=== PATIENT | female | born 1980 | race Caucasian/White ===

== ENCOUNTER 2017-09-21 05:52 | Day surgery (SDC) | payer BC ==
[~2017-09-21] VITALS: Ht 175.3 cm; Wt 68.0 kg
[~2017-09-21 05:52] MED LIST: BENTYL20 MG PO; HYDROCODON-ACE1 EAC7 PO; IBUPROFEN400 MG PO; MOTRIN800 MG PO; MULTI-BETIC TA1 EACH PO; TYLENOL EXTRA500 MG PO; URSODIOL300 MG PO; URSODIOL500 MG PO; ZOFRAN4 MG PO
[2017-09-21 06:26] VITALS: BP 117/65
[2017-09-21] MEDS ORDERED: ULTRAM50 MG PO (08:31)
[2017-09-21 10:01] VITALS: BP 104/56
[2017-09-21 10:47] VITALS: BP 99/56
[2017-09-21 11:46] VITALS: BP 112/57
== END 2017-09-21 12:05 | disposition home or self-care (01) ==
LOC: SDC 05:52
DX: Z30.2 Encounter for sterilization (principal); N92.0 Excessive and frequent menstruation with regular cycle; Z87.891 Personal history of nicotine dependence
CPT/HCPCS: 88302; 88305; J0690; J1100; J1170; J1885; J2250; J2405; J2710; J2765; J3010; Q0175